=== PATIENT | male | born 1965 | race Caucasian/White ===

== ENCOUNTER → 2016-10-27 | Outpatient (CLI) | payer MEDICAID ==
[~2016-10-27] MED LIST: NORVASC 2.5MG.2.5 MG
--- NOTE | 2016-10-30 07:06 | RADIOLOGY REPORT PS360 ---
CT EXT.LOWER-RT-W/O CONTRAST CT OF THE RIGHT ANKLE AND FOOT INDICATION: [id number] DISEASE,BILAT PES CAVUS,RT TIB BONE CYS ORDERING PHYSICIAN: STEFFANY PEDROZA DPM PATIENT AGE: 51 years COMPARISON: None TECHNIQUE: Axial images are obtained without contrast. Sagittal and coronal reformatted images are reviewed as well. FINDINGS: There are osteoarthritic changes of the ankle joint with decrease in the joint space and bony hypertrophic change. There is some hypertrophic change along the neck of the talus anteriorly with spurs along the distal tibia and posterior tibia. Subchondral cystic changes involve the distal tibia. There is a well-circumscribed cystic lesion involving the distal aspect of the tibia anteriorly at 2 cm cephalad to caudad, 1.7 cm transverse, and 1.1 cm AP. This is well-circumscribed and has a benign appearance. Subchondral cystic changes are present at the distal fibula medially and also at the lateral aspect of the medial malleolus. There is well-circumscribed locular cyst involving the talus at the medial corner at 6 mm. The talar dome itself otherwise has an unremarkable appearance. Small cyst involves antra aspect of the calcaneus at 7 mm. There are mild osteoarthritic changes of the posterior talocalcaneal joint posteriorly. There is flexion deformity/hammertoe deformity of digits 2 through 5. It is difficult to evaluate the calcaneal inclination angle without weightbearing images. On the previous lateral foot radiograph, the calcaneal inclination angle was 20 degrees which is within normal limits. Other measurements may better be obtained with weightbearing if the patient can weight-bear. There is hallux valgus with first metatarsophalangeal angle of 32 degrees determined by measuring on the previous foot. Those images however were not weightbearing. There is mild medial subluxation of the navicular x 7 mm with mild osteoarthritic change of the talonavicular joint. No destructive process is evident. No abscess. IMPRESSION: 1. Osteoarthritic changes of the foot and ankle with subchondral cystic change. 2. Benign-appearing cystic lesion of the distal tibia at 2 cm. 3. Hallux valgus with hammertoe deformity
--- NOTE | 2016-10-30 07:15 | RADIOLOGY REPORT PS360 ---
CT EXT.LOWER-LT-W/O CONTRAST CT LEFT ANKLE AND FOOT INDICATION: [id number] DISEASE,BILAT PES CAVUS,RT TIB BONE CYS, foot pain ORDERING PHYSICIAN: STEFFANY PEDROZA DPM PATIENT AGE: 51 years COMPARISON: Foot films nonweightbearing on 08/30/2016 TECHNIQUE: Axial images are obtained without contrast. Sagittal and coronal reformatted images are reviewed as well. FINDINGS: Osteoarthritic changes involving the ankle joint with osteophyte formation and decrease in the joint space. Subchondral cystic changes are present involving the medial and lateral malleolus. The talar dominant has an unremarkable appearance. There are hypertrophic changes of the talar neck. Small bony fragments are present at the tip of the lateral malleolus consistent with old avulsion injuries. Accessory center of ossification is also a consideration. There are mild osteoarthritic changes of the talonavicular joint and the calcaneal cuboid joint. Various angles may better be determined with weightbearing or weightbearing simulated images. Hammertoe deformity involves all of the toes with less involvement of the great toe compared to the remaining toes. Osteoarthritic changes are present first metatarsophalangeal joint. No fracture or dislocation. No lytic changes. No evidence of osteomyelitis. There is mild to moderate medial subluxation of the navicular on the talus of 9 mm with metatarsus varus and mild hallux valgus. Angles are difficult and not accurately measured without weightbearing. IMPRESSION: 1. Osteoarthritic changes of the left foot and ankle with subchondral cystic changes. 2. Hallux valgus with metatarsus varus. The measurement of the appropriate angles would be better assessed with weightbearing or weightbearing simulation radiographs 3. Hammertoe deformity digits 1 through 5. 4. On the nonweightbearing images there is no evidence of pes cavus. The calcaneal inclination angle was 16 degrees on the previous left foot exam however, that was nonweightbearing
--- NOTE | 2016-10-31 12:02 | RADIOLOGY REPORT PS360 ---
MRI-LOW EXT ANY JOINT W/O-RT MRI right ankle HISTORY: CHARCOT LYRIC TOOTH DISEASE, RT TIBIAL BONE CYST Ordering Physician: STEFFANY PEDROZA DPM Patient Age: 51 years: Male TECHNIQUE & FINDINGS: : Multiplanar multisequence imaging without contrast is compared to the recent MR I ankle with contrast from 10/13/2016 . Also right and left ankle CT 10/27/2016 used for comparison Again findings of advanced degenerative changes at the right ankle joint with narrowing and chondral loss at the ankle joint, most evident at its medial joint and about medial corner of talus. Slight inversion tilt of the talus with this there is chondral loss most evident along the medial margin and medial corner of the talus with associated osteochondral defect medial corner of talus. Also associated superior to this narrowed arthritic medial ankle joint we again see the the large subchondral cystic change feature previously discussed. Measuring up to 3.8 seem height x 2 cm.. This has a well-defined sclerotic margin is seen on recent CT of right ankle.l . Numerous other tiny subchondral cyst are also seen throughout subarticular distal tibia in this same region Today's Precontrast appearance would be compatible with subchondral cyst as well noting low signal T1 & bright signal on T2-weighted images. The previous postcontrast study showed diffuse enhancement here as well as at the other subchondral cystic areas about the arthritic ankle.-Enhancement can be seen with subchondral cyst. (They are not actually cyst likely containing elements of inflamed synovium type tissue) . At this right ankle majority arthritic changes are at the ankle joint, medial aspect. With minimal arthritic changes at the subtalar joint level(in contrast to the left ankle). There is slight increase enhancement and fluid along the posterior aspect of the posterior process of the talus on the right and with mild enhancement of likely inflamed synovium along posterior ankle joint on right along with minimal fluid. At the lateral aspect of ankle joint would note subchondral cystic feature at the medial aspect of the distal fibula -at the level of the ankle joint. This measured up to 12 mm height-This was seen previously and noted. The recent CT, as well as these MR right ankle demonstrate the hypertrophic changes most evident at anterior aspect of the ankle joint-with spurring from both the anterior margin of tibia and talus at the ankle. There is also fragmented marginal osteophytes between the tibia and the fibula seen best on CT axial images of this region. The lack of abnormal bone signal in these areas is spurring would support that there are old features with no acute fracture. . There is some minimal fluid overlying the peroneus tendons below the level of the lateral malleolus. However overall Peroneal tendons appear intact. Only question some upper normal signal along the anterior margin of the. the peroneusbrevis tendon as it passes along the posterior margin of lateral malleolus, which could reflect some mild tendinopathy of the peroneus tendon but findings here unimpressive. The tendons at the medial aspect ankle appear intact. Achilles tendon and plantar aponeurosis appear intact. IMPRESSION: 1. Prominent arthritic changes at the right ankle joint-most evident along the medial ankle joint & particularly pronounced above the medial corner of the talus as discussed above (/as well as reported on previous postcontrast right ankle MR) . Today's studies concur with previous impression Today's studies further support findings are related to degenerative arthritic changes with a large subchondral/degenerative cystic feature seen here at the distal tibia. Numerous other tiny subchondral cyst is seen about this narrowed arthritic medial ankle joint;. Also smaller subchondral cyst at medial margin of the distal fibula noted 2. With these arthritic changes also seen marginal osteophytes, hypertrophic changes most evident along the anterior aspect the ankle joint as described above ... ( As well as described on recent CT)
== END ==
LOC: RAD 14:42
DX: G60.0 Hereditary motor and sensory neuropathy (principal); M85.461 Solitary bone cyst, right tibia and fibula; M19.072 Primary osteoarthritis, left ankle and foot; M19.071 Primary osteoarthritis, right ankle and foot; M62.471 Contracture of muscle, right ankle and foot; M62.472 Contracture of muscle, left ankle and foot

== ENCOUNTER 2017-01-25 06:13 | Day surgery (SDC) | payer MEDICAID ==
[~2017-01-25] VITALS: Ht 172.7 cm; Wt 108.9 kg
[~2017-01-25 06:13] MED LIST changes: +ENOXAPARIN40 MG/0.4 SC; +IBUPROFEN800 MG PO; -NORVASC 2.5MG.2.5 MG; +NORVASC 2.5MG.2.5 MG PO; +NORVASC 5MG. TAB5 MG PO; +ONDANSETRON H2 MG/ML IV; +PERCOCET1 TA1 PO; +VALIUM 5MG TABLE5 MG PO
--- NOTE | 2017-01-25 14:16 | Anesthesia Record ---
Anesthesia Record Part I Total IV fluids: 2200 EBL (ml): 20 Urine Output: 300 B/P: 142/86 % SaO2: 93 Pulse: 90 Resps: 10 Temp: 97.4 Patient is: Awake, Nasal O2, Stable Stable to PACU at: 1408 at 1415
--- NOTE | 2017-01-25 14:16 | Anesthesia Record ---
Anesthesia Record Part II Discharge time: 1438 Destination: Same day surgery PACU nurse assessment review? Yes Patient is: Awake, Stable Anesthesia complications? No at 1414
[2017-01-25 14:40] LABS: URINE BILIRUBIN - DIPSTICK NEGATIVE (NEG); URINE BLOOD TRACE-INTACT (NEG)
--- NOTE | 2017-01-25 14:44 | RADIOLOGY REPORT PS360 ---
FOOT-RT-2 VIEWS HISTORY: TOE REVISION ORDERING PHYSICIAN: STEFFANY PEDROZA DPM PATIENT AGE: 51 years COMPARISON: 08/30/2016 FINDINGS: 4 images obtained during surgery with fluoroscopy showing placement of K wires within all 5 digits, fixation of the first metatarsophalangeal joint, 2 clemente at the proximal first metatarsal. IMPRESSION: Status post extensive foot surgery as detailed above with fluoroscopy utilized
[2017-01-25 14:47] LABS: URINE SQUAMOUS CELLS OCC #/hpf (OCC)
--- NOTE | 2017-01-25 14:47 | RADIOLOGY REPORT PS360 ---
FOOT-LT-3 VIEWS HISTORY: Follow-up surgery L FOOT 3 VIEWS AND CALC AXID ORDERING PHYSICIAN: STEFFANY PEDROZA DPM PATIENT AGE: 51 years COMPARISON: 01/19/2017 FINDINGS: There is been interval insertion of K wires from the distal phalanx to the proximal aspect of the metatarsals at digits 2 through 5 with osteotomies of the distal aspect of the metatarsals and the distal aspect of the proximal phalanx of these digits. There is good alignment. There has been osteotomy of the proximal and distal aspect of the first metatarsal with bunionectomy with placement of 2 additional large clemente and proximal aspect of the first metatarsal. There is once again noted 3 screws at the talocalcaneal region and a large staple at the calcaneal cuboid area with fragmentation of the navicular once again noted. IMPRESSION: Postsurgical changes as described above.
[2017-01-25 15:26] VITALS: BP 112/69
--- NOTE | 2017-01-25 17:20 | Operative Note-Podiatry ---
Procedure/Operative Record Procedure DATE OF PROCEDURE 01/25/17 PREOPERATIVE DIAGNOSIS 1. Left Charcot Alia tooth disease 2. Left Pes Cavus 3. Left Hammertoes 1-5 4. Left foot osteoarthritis 5. 11/23/16: S/p left Steindler stripping, tendo Achilles lengthening, posterior tibial tendon lengthening, triple arthrodesis, peroneal brevis to longus tenodesis, application of Amniotic membrane POSTOPERATIVE DIAGNOSIS Same as Preop Dx PROCEDURE PERFORMED 1. Left Dorsiflexory wedge osteotomy 2. Left first metatarsophalangeal joint arthrodesis 3. Left HIPJ arthrodesis with extensor hallucis longus tendon lengthening 4. Left tamayo metatarsal head resection 2-5 5. Left hammertoe repair (PIPJ AD 2-4, PIPJ AP 5) 6. Left EDL tendon lengthening 2-5 7. Application of amniotic membrane SURGEON Sherly Pedroza DPM ANESTHESIA General Pre-op regional block: sciatic, saphenous nerve per Anesthesia EBL (ml) 50 OPERATIVE NOTE/DISCHARGE/PLAN Indication for procedure: Mr. Sandy is a 51-year-old male who presents for planned staged CMT pes cavus reconstruction. Patient has suffered with foot pain for over 20 years. 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 He was evaluated by neurology, had NCS which confirmed diagnosis and given neurology clearance. Bilateral foot and ankle x-rays, CT, MRI was obtained. Patient has tried and failed conservative care including modification of shoe gear, taping, strapping, inserts, ice, elevation, injections, and NSAIDs. He also had ankle braces/AFOs. Patient has been nonweightbearing to the LLE. Patient had stage 1, 11/23/16: Right ankle biopsy, Left Steindler stripping, Left tendo Achilles lengthening, Left posterior tibial tendon lengthening, Left triple arthrodesis, Left peroneal brevis to longus tenodesis, Application of Amniotic membrane. The patient has been instructed on the planned procedure, all the risks vs. benefits of the procedure to include bleeding, infection, nerve and blood vessel damage, need for further surgery, delay in healing of soft tissue or bone, malunion or nonunion, recurrence or progression of deformity, prolonged pain and recovery, residual deformity, prolonged swelling, CRPS/RSD, dvt, and anesthetic complications. No guarantees were given. All questions fully answered. The patient verbalized understanding and agreed to proceed with surgery. Consent was obtained. On this date and time patient was deemed an appropriate surgical candidate. With informed consent signed, the patient was taken to the operating theater. The patient was positioned supine. General anesthesia was induced after pre-op regional block. Left mid calf tourniquet was applied at 225mmHg. 1. Left First Metatarsophalangeal Joint Arthrodesis: The left lower extremity was prepped and draped in normal sterile fashion. Attention was directed to the 1st metatarsophalangeal joint (MPJ), where a dorsal linear incision was mapped out extending proximal from the HIPJ to proximal on the met shaft. The tourniquet was inflated at 225 mmHg. Dissection was carried thru skin and subcutaneous tissue with care taken to maintain surgical hemostasis and safely retract neurovascular structures. Dissection was then carried through deep fascia linearly over the 1st MPJ, exposing the met head. There was severe arthritic changes noted with wearing down of the cartilage on both the metatarsal head and proximal phalanx. Sesamoids were also noted to be arthritic. Soft tissue surrounding the first MPJ was released. A McGlamry elevator was used to pass underneath the metatarsal heads releasing more of the contracture. Utilizing hand instrumentation in the form of ronguer, the osteophytes were removed and some of the spurs were resected. Next utilizing reamers the base of the proximal phalanx and the metatarsal head were prepared. The remaining portion of the cartilage was removed. The subchondral plate was broken and then utilizing 0.062 K wire the joint was fenestrated down to the level of good healthy cancellous bleeding bone. Rasp was used to smooth the joint and remaining spurring. The wound was flushed with copious amounts of saline. 2. Left Dorsiflexory Wedge Osteotomy: At this point attention was directed to the proximal metatarsal. The incision was extended from the metatarsal shaft to just proximal to the first metatarsal cuneiform joint. Dissection was carried through skin and subcutaneous tissue with care taken to maintain surgical hemostasis and safely retract neurovascular structures. The medial dorsal cutaneous nerve was encountered and safely retracted throughout the procedure. Dissection was then carried down to the level of the bone. Periosteum was removed about 1 cm proximal to the first MCJ. Under intraoperative fluoroscopy the first metatarsal was bisected and an osteotomy was created from a centimeter proximal to the joint with the apex inferiorly creating a wedge superiorly. Osteotomy was cut and the first metatarsal was dorsiflexed, temporary fixation was inserted. Position checked on x-ray. It was deemed to be appropriate. At this point a 15 mm [employer] medical staple was inserted in accordance with test facility engineer guidelines and standard technique. Good compression was noted at the osteotomy site. A second staple, measuring 12 mm was inserted superiorly to inferiorly. X-ray confirmed the clemente were not in the joint and adequate reduction of the osteotomy with compression was noted. The wound was flushed with copious amounts of saline. Attention was now directed back to the first MPJ where the fusion reduction and fixation was performed. At this point, the joint was reduced and temporary fixation inserted. Position was checked under intra-op fluoroscopy. Optimitive 4.0 mm cannulated screw was inserted from medial proximal phalanx to lateral 1st metatarsal. [employer] OrthoLoc 0 degree plate was inserted in standard technique. 2.7mm screws x 3 were inserted distally into the proximal phalanx. Next one 2.7mm and 2 x 3.5mm screws into the metatarsal. Good apposition and position was noted. X-ray confirmed position and hardware stable. The wound was flushed. 3. Left HIPJ Arthrodesis with Extensor Hallucis Longus Tendon Lengthening: Attention was directed distally to the HIPJ, where ronguer and rasp were used to remove the dorsal spurring. Wound was once again flushed with copious amounts of saline. The head of the proximal and base of distal phalanx were resected with power saw to the level of cancellous bone. A 0.062 K wire was then inserted for temporary fixation. Position was checked under x-ray and deemed to be appropriate with good alignment of the HIPJ. A Optimitive 8mm staple was inserted however the bone was very soft and the staple fractured and broke out the lateral proximal phalanx. A 10 mm staple was then inserted, with good compression noted. The K wire was left in place. The wound was flushed with copious amounts of saline. The EHL was lengthened via a Z-plasty and repaired with 2-0 Vicryl. 2-0 Vicryl was used to close deep tissue in a running fashion. 4. Application of Amniotic Membrane Deep closure was performed with 2-0 Vicryl on the medial incision. After deep closure, the amniotic membrane, Actishield graft was inserted over the deep fascia and wrapped around the Medial dorsal cutaneous nerve. The subcutaneous layer was closed with 3-0 Vicryl, and more membrane was inserted prior to skin closure. The skin was closed with 3-0 nylon in a Horizontal mattress fashion. Viaflow was then injected into the incision. The tourniquet was deflated at 2 hrs and immediate hyperemic response was noted to the digits. The tourniquet was left down for 25 mins prior to re-inflation. 5. Left Hammertoe Repair (PIPJ AD 2-4, PIPJ AP 5): Attention was then directed laterally to the second through fifth digits. A dorsal linear incision was mapped out over the second and fourth digits extending to the MPJ curving between the second and third metatarsals and the fourth and fifth metatarsals respectively. A dorsal linear incision was mapped out over the third and semi elliptical incision over the fifth digit. Dissection was carried through skin to subcutaneous tissue with care taken to maintain surgical hemostasis and safely retract neurovascular structures. Transverse tenotomy was performed. The PIPJ was exposed. The head of the proximal phalanx 2 -5 and base of the middle phalanx 2-4 was resected with saw power, exposing good cancellus bleeding bone. 6. Left Extensor Digitorum longus tendon lengthening 2 through 5: At this point attention was directed proximally. The extensor tendons were transected distally previously. They were lengthened 2-5 via Z plasty. Dissection was then carried down to the level of the bone exposing the metatarsal phalangeal joints 2 through 5. 7. Left Tamayo Metatarsal Head Resection 2-5: The collateral ligaments were freed from the MPJs 2 through 5. A McGlamry elevator was then passed underneath each of the metatarsals freeing plantar adhesions. It should be noted that the phalanx 2-5 were dislocated and sitting on top of the metatarsal heads. At this point power resection was used to remove the arthritic metatarsal heads 2 through 5. At this point the digits were able to lay down in a relatively normal alignment. The wounds were flushed with copious amounts of normal sterile saline. Attention was directed to the PIPJ where a 1.1 mm K wire was inserted into the middle phalanx driven out the tip of the toe and retrograded back into the proximal phalanx. The K wire was visualized. At this point the K wire was driven into the metatarsal extending down to the metatarsal shaft. Identical procedure was performed on the 3-5 digits. Intraoperative fluoroscopy was utilized to check the position of the wires which were deemed to be appropriate. And the wires were cut, bent and Coy balls applied. The wounds were flushed with normal sterile saline. The extensor tendons were then repaired with 3-0 Vicryl in an over and over fashion. Subcutaneous tissue was reapproximated in interrupted suture fashion. The skin was reapproximated with 4-0 nylon in an interrupted mattress fashion. Via flow was inserted into all of the incisions. The tourniquet was deflated at 2 hours and immediate hyperemic response was noted to the digits. The wounds were cleansed. Xerofoam, dry sterile dressing was then applied followed by a soft compressive dressing. The patient was awoken from anesthesia and transfered to recovery with vital signs stable and neurovascular status intact. Specimens: None Materials: Optimitive Fuse Force Staple x 3 (15mm x1, 12mm x1, 10mm x1 implanted; explanted 8 mm staple) 4.0 mm cannulated partial threaded screw x 1 (30mm) [employer] medical Ortho Loc 0 degree 1st MPJ Plate and 2.7 mm screws x 3 locking, 2.7mm x 1 nonlocking, 3.5mm x 1 locking and 1 nonlocking 0.062 K wire x 1 1.1mm K wire x 4 Actishield (amniotic graft) Viaflow x 2 Discharge/Plan: Patient is to maintain dressing clean dry and intact. Ice behind the knee, top of left foot and elevate two pillows. Non weight bearing to the left lower extremity with DME assistance. Patient has walker, rolling knee scooter and wheelchair. Rx given for Percocet 10/325, Zofran, Valium 5mg and Motrin 800mg. Obtain post op films, left foot, os calc, foot. Follow up with me in one week for wound check. at 1841 Admit for overnight observation for pain control, per Dr Gustafson's service. Plan to discharge tomorrow after one session of physical therapy. Patient is to maintain posterior splint clean dry and intact. Ice behind the knee and elevate two pillows. Non weight bearing to the left lower extremity with DME assistance. Patient has crutches, walker. Rx given for Percocet 7.5, Zofran, Lovenox and Motrin 800mg. Obtain post op films, left foot, os calc, ankle. Follow up with me in one week for wound check.
[2017-02-15] MEDS ORDERED: BACTRIM DS 8001 TA1 PO (12:34)
[2017-02-15] MEDS ORDERED: KEFLEX 500MG.500 MG PO (12:34)
== END 2017-01-25 15:34 | disposition home or self-care (01) ==
LOC: SDC 06:13
PROVIDERS: Podiatrist
PROC: 0SGQ04Z Fusion of Left Toe Phalangeal Joint with Internal Fixation Device, Open Approach (ICD-10-PCS; 2017-01-25)
PROC: 0QBP0ZZ Excision of Left Metatarsal, Open Approach (ICD-10-PCS; 2017-01-25)
PROC: 2W2RX4Z Dressing of Left Lower Leg using Bandage (ICD-10-PCS; 2017-01-25)
PROC: 0L8W0ZZ Division of Left Foot Tendon, Open Approach (ICD-10-PCS; 2017-01-25)
PROC: 0SGN0ZZ (ICD-10-PCS; principal; 2017-01-25 07:30)
DX: M20.42 Other hammer toe(s) (acquired), left foot (principal); G60.0 Hereditary motor and sensory neuropathy; Q66.7 Congenital pes cavus; M19.072 Primary osteoarthritis, left ankle and foot; I10 Essential (primary) hypertension; Z82.49 Family history of ischemic heart disease and other diseases of the circulatory system; Z83.49 Family history of other endocrine, nutritional and metabolic diseases; Z79.899 Other long term (current) drug therapy
CPT/HCPCS: C1713; C1762; C1776; C9399; J0330; J2405